=== PATIENT | male | born 1990 | race Asian ===

== ENCOUNTER 2017-08-23 18:15 | Emergency (ER) | payer OTHER ==
[~2017-08-23] VITALS: Ht 188 cm; Wt 123.7 kg
[2017-08-23] MEDS ORDERED: ACETAMINOPHEN 500 MG TABLET PO ONE (19:00)
[2017-08-23] MEDS ORDERED: SODIUM CHLORIDE 0.9% 1,000ML IVBOLUS ONE ×2 (19:00→20:00)
[2017-08-23] MEDS ORDERED: SODIUM CHLORIDE FLUSH 10ML SYR IVF ONE (19:00)
[2017-08-23] MEDS ORDERED: ONDANSETRON 2MG/ML, 2ML IVPush ONE (19:00)
[2017-08-23 19:05] LABS: RAPID INFLUENZA A Negative (Negative); RAPID INFLUENZA B Negative (Negative)
[2017-08-23] MEDS ORDERED: ONDANSETRON 2MG/ML, 2ML ONE (19:06)
[2017-08-23] MEDS ORDERED: ACETAMINOPHEN 500 MG TABLET ONE (19:06)
[2017-08-23 19:17] LABS: BASOPHILS # (AUTO) 0.02 x10^3/uL (0-0.1); BASOPHILS % (AUTO) 0 % (0-1); EOSINOPHILS # (AUTO) 0.21 x10^3/uL (0-0.4); EOSINOPHILS % (AUTO) 3 % (1-7); LYMPHOCYTES # (AUTO) 1.16 x10^3/uL (1-3.4); LYMPHOCYTES % (AUTO) 14 % (22-44); MD NO; MEAN CORPUSCULAR HEMOGLOBIN 26.8 pg (27.5-34.5); MEAN CORPUSCULAR HGB CONC 32.9 g/dL (33.2-36.2); MEAN CORPUSCULAR VOLUME 81.5 fL (81-97); MEAN PLATELET VOLUME 8.7 fL (7.4-10.4); MONOCYTES # (AUTO) 0.67 x10^3/uL (0.2-0.8); MONOCYTES % (AUTO) 8 % (2-9); NEUTROPHILS % (AUTO) 75 % (42-75); PLATELET COUNT 271 x10^3/uL (130-400); RED BLOOD COUNT 6.38 x10^6/uL (4.38-5.82); RED CELL DISTRIBUTION WIDTH 13.9 % (9.4-14.8)
[2017-08-23] MEDS ORDERED: IBUPROFEN 200 MG TABLET ONE (19:19)
[2017-08-23 19:29] LABS: ANION GAP 10 mmol/L (5-15); CALCIUM 8.9 mg/dL (8.5-10.1); CHLORIDE 108 mmol/L (98-107); CREATININE 1.09 mg/dL (0.7-1.3)
[2017-08-23] MEDS ORDERED: IBUPROFEN 200 MG TABLET PO ONE (19:30)
[2017-08-23 20:29] VITALS: BP 113/64
== END 2017-08-23 20:56 | disposition home or self-care (01) ==
LOC: ED 20:48
DX: J20.8 Acute bronchitis due to other specified organisms (principal); K29.00 Acute gastritis without bleeding; B34.9 Viral infection, unspecified
CPT/HCPCS: 36415; 71046; 80048; 82040; 83605; 85025; 87400; 93005; 96361; 96374; 99285; J2405; J7030

== ENCOUNTER 2018-10-13 05:52 | Emergency (ER) | payer OTHER ==
[~2018-10-13] VITALS: Ht 188 cm; Wt 128.8 kg
[2018-10-13] MEDS ORDERED: ONDANSETRON 2MG/ML, 2ML ONE (06:57)
[2018-10-13] MEDS ORDERED: ACETAMINOPHEN 500 MG TABLET ONE (06:57)
[2018-10-13] MEDS ORDERED: KETOROLAC 30 MG/1 ML ONE (06:57)
[2018-10-13] MEDS ORDERED: ONDANSETRON 2MG/ML, 2ML IVP ONE (07:00)
[2018-10-13] MEDS ORDERED: ACETAMINOPHEN 500 MG TABLET PO ONE (07:00)
[2018-10-13] MEDS ORDERED: SODIUM CHLORIDE FLUSH 10ML SYR IVF ONE (07:00)
[2018-10-13] MEDS ORDERED: KETOROLAC 30 MG/1 ML IVPush ONE (07:00)
[2018-10-13] MEDS ORDERED: SODIUM CHLORIDE 0.9% 1,000ML IVBOLUS ONE (07:00)
--- NOTE | 2018-10-13 07:07 | NUR ---
REPORT FROM HAMILTON HOOPER.
[2018-10-13 07:18] LABS: MEAN CORPUSCULAR HEMOGLOBIN 27.4 pg (27.5-34.5); MEAN CORPUSCULAR HGB CONC 33.6 g/dL (33.2-36.2); MEAN CORPUSCULAR VOLUME 81.6 fL (81-97); MEAN PLATELET VOLUME 8.5 fL (7.4-10.4); PLATELET COUNT 257 x10^3/uL (130-400); RED BLOOD COUNT 5.47 x10^6/uL (4.38-5.82); RED CELL DISTRIBUTION WIDTH 13.3 % (9.4-14.8)
[2018-10-13 07:28] LABS: ALANINE AMINOTRANSFERASE 66 U/L (12-78); ALBUMIN 3.8 g/dL (3.4-5.0); ANION GAP 7 mmol/L (5-15); CALCIUM 8.7 mg/dL (8.5-10.1); CHLORIDE 109 mmol/L (98-107); CREATININE 1.11 mg/dL (0.7-1.3)
[2018-10-13 07:30] LABS: ALKALINE PHOSPHATASE 115 U/L (45-117); BILIRUBIN,TOTAL 0.8 mg/dL (0.2-1.0); TOTAL PROTEIN 7.3 g/dL (6.4-8.2)
--- NOTE | 2018-10-13 07:53 | NUR ---
Pt is resting in bed, with oxygen on, pt is connected to the monitor. Call light within reach. Pt is alert, oriented, with RR at 24.
[2018-10-13 08:48] VITALS: BP 129/66
[2018-10-13 09:43] LABS: MD YES
[2018-10-13 09:45] LABS: BANDS%(MANUAL) 3 % (0-7); BASOS#(MANUAL) 0.17 x10^3/uL (0-0.1); BASOS% (MANUAL) 1 % (0-1); EOS#(MANUAL) 0.17 x10^3/uL (0.0-0.4); EOS% (MANUAL) 1 % (1-7); LYMPH#(MANUAL) 1.16 x10^3/uL (1-3.4); LYMPHS% (MANUAL) 7 % (22-44); MONOS% (MANUAL) 3 % (2-9); SEG#(MANUAL) 14.11 x10^3/uL (1.8-6.8); SEGS% (MANUAL) 85 % (42-75)
[2018-10-13 09:46] LABS: <PLATELET ESTIMATE> ADEQUATE; <PLT MORPHOLOGY> NORMAL PLT MORPH; <RBC MORPHOLOGY> NORMAL
== END 2018-10-13 09:41 | disposition home or self-care (01) ==
LOC: ED 07:56
DX: B34.9 Viral infection, unspecified (principal)
CPT/HCPCS: 36415; 71046; 80053; 83605; 85025; 93005; 96361; 96374; 96375; 99284; J1885; J2405; J7030